=== PATIENT | male | born 1995 | race Caucasian/White ===

== ENCOUNTER → 2022-10-23 | Outpatient (CLI) | payer BC ==
--- NOTE | 2022-10-23 08:16 | CT ---
EXAMINATION TYPE: CT soft tissue neck w con DATE OF EXAM: 10/23/2022 COMPARISON: None HISTORY: 27-year-old male R22.32, left axillary fullness. TECHNIQUE: Contiguous axial scanning of the soft tissues of the neck performed with IV Contrast, felice ent injected with 100 mL of Isovue 300. Coronal/sagittal reconstructions performed. CT DLP: 688.30 mGycm Automated exposure control for dose reduction was used. FINDINGS: Some minimal strandy residual thymic tissue in the anterior mediastinum. Of note, the uppermost axill manolo region including the axillary vessels are included in the [id number]. Most of the soft tissues of the axilla are excluded. Visualized upper lungs show no gross abnormality. The thyroid and submandibular glands as well as the parotid glands appear satisfactory. Visualized intracranial structures, orbits and globes, and mastoid air cells appear clear. Visualized paranasal sinuses are also clear. Slight leftward nasal septal deviation. Mild soft tissue hypertrophy of the adenoids. Moderate bilateral lingual tonsillar hypertrophy. The epiglottis and prevertebral soft tissues are satisfactory. Gliotic and subglottic structures as well as the tracheal column and visualized upper lungs are clear . A borderline enlarged left upper cervical lymph node station 2A measures 1.5 cm short axis, sagittal image 57. Otherwise, no cervical lymph adenopathy seen. Bones: No osseous destructive process. IMPRESSION: 1. Technologist notes: Pt states he's had LT axillary masses. Pt was not authorized for a chest CT, was advised what a CT of the neck covers and said he was ok having test. 2. Note that most of the soft tissues of the axilla are not included in the [id number] of this exa m. 3. A single borderline enlarged 1.5 cm short axis left station 2A lymph node. No other cervical lymph adenopathy or suspicious neck masses seen. 4. Moderate bilateral lingual tonsillar hypertrophy and mild adenoid soft tissue hypertrophy.
== END | disposition home or self-care (01) ==
LOC: RADCTMAIN 07:20
PROVIDERS: ATTEND Internal Medicine
DX: J35.3 Hypertrophy of tonsils with hypertrophy of adenoids (principal); R22.32 Localized swelling, mass and lump, left upper limb
CPT/HCPCS: 70491; Q9967

== ENCOUNTER → 2022-12-31 | Outpatient (CLI) | payer BC ==
--- NOTE | 2022-12-31 09:54 | FL ---
EXAMINATION TYPE: FL barium swallow DATE OF EXAM: 12/31/2022 CLINICAL INDICATION: 27-year-old male K21.9, GERD COMPARISON: None Total Fluoroscopy Time: 1 minute 56 seconds 30 images obtained. Total DAP: 532 MGycm2 FINDINGS: The swallowing mechanism is normal and hypopharyngeal anatomy is preserved. The cervical and thoracic portions have a normal course and caliber and normal motility. The mucosa is normal and no persistent filling defect is encountered. There is a small sliding hiatal hernia demonstrated. Trace gastroesophageal reflux is seen during the course of the exam during prone/supine Valsalva and positional maneuvers. This may be underestimated. IMPRESSION: Small sliding hiatal hernia with gastroesophageal reflux. During the course of the exam, only trace reflux could be demonstrated but this may be underestimated. No other specific abnormality seen.
== END | disposition home or self-care (01) ==
LOC: RADUSWWP 07:48
PROVIDERS: ATTEND Otolaryngology
DX: K21.9 Gastro-esophageal reflux disease without esophagitis (principal); K44.9 Diaphragmatic hernia without obstruction or gangrene
CPT/HCPCS: 74220